=== PATIENT | female | born 1965 | race Asian ===

== ENCOUNTER 2025-06-07 08:20 | Outpatient (CLI) | payer BC, OTHER | END 2025-06-07 08:21 | disposition home or self-care (01) | LOC: SCSBT 08:20 → SCSRAD 08:21 | PROVIDERS: ATTEND Nurse Practitioner Family | DX: M79.641 Pain in right hand (principal); M25.511 Pain in right shoulder; M25.561 Pain in right knee; M25.562 Pain in left knee ==